=== PATIENT | female | born 1990 | race Caucasian/White ===

== ENCOUNTER 2017-05-29 18:16 | Emergency (ER) | payer OTHER ==
[2017-05-29] MEDS ORDERED: Famotidine/PF 20 mg/2ml Vial ONE (18:36)
[2017-05-29] MEDS ORDERED: Water For Inject, Bacteriostat 30 ML ONE (18:36)
[2017-05-29] MEDS ORDERED: methylPREDNISolone Sod Succ/PF 125 MG/2 ML VIAL ONE (18:36)
[2017-05-29] MEDS ORDERED: Ondansetron HCl/PF 4 MG/2 ML Vial ONE (18:49)
== END 2017-05-29 20:07 | disposition home or self-care (01) ==
LOC: ERS 18:16
DX: T88.6XXA Anaphylactic reaction due to adverse effect of correct drug or medicament properly administered, initial encounter (principal); F90.9 Attention-deficit hyperactivity disorder, unspecified type; I73.00 Raynaud's syndrome without gangrene
CPT/HCPCS: 96372; 96374; 96375; J2405; J2930; S0028

== ENCOUNTER 2017-12-02 17:22 | Emergency (ER) | payer OTHER ==
[2017-12-02] MEDS ORDERED: EPINEPHrine 1 MG/ML AMP ONE (17:24)
[2017-12-02] MEDS ORDERED: diphenhydrAMINE 50 MG/ML VIAL ONE ×2 (17:24→17:31)
[2017-12-02] MEDS ORDERED: methylPREDNISolone Sod Succ/PF 125 MG/2 ML VIAL ONE (17:24)
[2017-12-02] MEDS ORDERED: Ondansetron HCl/PF 4 MG/2 ML Vial ONE ×2 (17:26→18:18)
[2017-12-02] MEDS ORDERED: Famotidine/PF 20 mg/2ml Vial ONE (17:28)
[2017-12-02] MEDS ORDERED: Diazepam 5 MG TAB ONE (19:39)
[2017-12-02] MEDS ORDERED: Dexamethasone 10 MG/ML VIAL ONE (20:28)
== END 2017-12-02 21:30 | disposition home or self-care (01) ==
LOC: ERS 17:22
DX: T65.811A Toxic effect of latex, accidental (unintentional), initial encounter (principal); F90.9 Attention-deficit hyperactivity disorder, unspecified type; Z79.899 Other long term (current) drug therapy
CPT/HCPCS: 96361; 96372; 96374; 96375; 96376; J0171; J1100; J1200; J2405; J2930; S0028

== ENCOUNTER 2018-01-09 18:07 | Observation (INO) | payer OTHER ==
[2018-01-09] MEDS ORDERED: Famotidine 20 MG TAB ONE (18:13)
[2018-01-09] MEDS ORDERED: Ondansetron ODT 4 MG TAB ONE ×2 (18:15→23:04)
[2018-01-09] MEDS ORDERED: diphenhydrAMINE 50 MG/ML VIAL ONE ×2 (18:19→22:22)
[2018-01-09] MEDS ORDERED: EPINEPHrine 1 MG/ML AMP ONE (18:20)
[2018-01-09] MEDS ORDERED: methylPREDNISolone Sod Succ/PF 125 MG/2 ML VIAL ONE (18:21)
[2018-01-09] MEDS ORDERED: EPINEPHrine 1 MG, Admixture Fee 1 EACH in Dextrose 5% in Water 250 ML IVPB SCH (18:30)
[2018-01-09] MEDS ORDERED: Famotidine 40 MG/4 ML VIAL SLOW IVP SCH (18:30)
[2018-01-09] MEDS ORDERED: Albuterol Sulfate 2.5 mg/3 ml Neb NEB PRN (23:37)
[2018-01-10 00:28] VITALS: BMI 21.7
[2018-01-10] MEDS: diphenhydrAMINE 50 MG/ML VIAL IVP SCH ×3 (00:39→11:27)
--- NOTE | 2018-01-10 00:51 | HP ---
PRIMARY CARE PHYSICIAN: Dr. Fortino Dill. PRESENTING COMPLAINT: Shortness of breath. HISTORY OF PRESENT ILLNESS: Ms. Joyce Pepe is a 27-year-old female with a past medical history of Raynaud disease and ADD, who was working at the emergency [facility] and accidentally touched a latex Dalton catheter. She has an allergy to LATEX and soon after developed shortness of breath, difficulty in swallowing, and wheezing. She was immediately given epinephrine and ended up getting 2 doses. She also received albuterol, Benadryl, Pepcid, and methylprednisolone, as well as Zofran. She improve with treatment, but she continued to have some difficulty breathing and persistently wheezing, so decision was made to admit for further care. PAST MEDICAL HISTORY: As stated in the HPI. PAST SURGICAL HISTORY: Right shoulder surgery. FAMILY HISTORY: Reviewed and noncontributory. SOCIAL HISTORY: Not drink alcohol, use illicit drugs or smoke cigarettes. ALLERGIES: LATEX. HOME MEDICATIONS: Adderall, ibuprofen. REVIEW OF SYSTEMS: A 10-point review of systems conducted and negative except as stated in HPI. PHYSICAL EXAMINATION: VITAL SIGNS: Shows slightly tachycardic with heart rate ranging between 110 and 120. Other vital signs within normal limits. CONSTITUTIONAL: Not in acute respiratory distress, sitting up in bed. HEENT: Normocephalic, atraumatic. Not pale, anicteric. PERRLA, EOMI. Moist mucous membrane. NECK: Supple, full range of movement. CARDIOVASCULAR: S1 and S2 only. CARDIOVASCULAR: Tachycardic, regular rhythm. No murmurs, rubs or gallops. RESPIRATORY: Minimal wheezing bilaterally. ABDOMEN: Soft, nontender, nondistended. Bowel sounds normoactive. MUSCULOSKELETAL: No edema. SKIN: Warm, dry, well-perfused. No rashes or lesions. NEUROLOGIC: Alert and well oriented to time, place and person. No focal deficits. PSYCHIATRIC: Normal mood and affect. ASSESSMENT AND PLAN: 1. 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 She has been started on epinephrine, nebulizer therapy, diphenhydramine and methylprednisone. We will monitor overnight initially and epinephrine drip was ordered due to patient's continued wheezing, but she improved after nebulizer therapy, so will hold off on epinephrine drip for now. CODE STATUS: FULL CODE. Deep venous thrombosis prophylaxis: Not required. MTDD
[2018-01-10] MEDS ORDERED: Albuterol Sulfate 2.5 mg/3 ml Neb NEB SCH (02:30)
[2018-01-10 04:57] LABS: #Lymphocytes 0.5 thou/uL (1.20-3.40); #Monocytes 0.1 thou/uL (0.11-0.59); #Neutrophils 6.2 thou/uL (1.40-6.50); %Basophils 0.2 % (0.0-1.0); %Eosinophils 0.2 % (0.0-10.0); %Lymphocytes 7.5 % (21.0-51.0); %Monocytes 1.4 % (0.0-10.0); %Neutrophils 90.7 % (42.0-75.0); Hemoglobin 11.7 g/dL (12.0-16.0); Mean Corpuscular HGB CONC 33.4 g/dL (32.0-36.0); Mean Corpuscular Hemoglobin 30.7 pg (27.0-31.0); Mean Corpuscular Volume 91.8 fl (81.0-99.0); Mean Platelet Volume 8.6 fL (7.4-10.4); Platelet Count 161 thou/uL (130-400); RBC Distribution Width 11.4 % (11.5-14.5); Red Blood Cell (RBC) Count 3.82 mill/uL (4.20-5.40); White Blood Cell (WBC) Count 6.8 thou/uL (4.8-10.8)
[2018-01-10 05:17] LABS: Anion Gap 9 mmol/L (10-20); BUN (Urea Nitrogen) 10 mg/dL (7.0-18.7); Calc. Creatinine Clearance 110 mL/min (70-130); Calcium 8.2 mg/dL (7.8-10.44); Carbon Dioxide 21 mmol/L (22-29); Chloride 111 mmol/L (98-107); Estimated GFR-MDRD 82; Glucose 245 mg/dL (70-105); Potassium 4.3 mmol/L (3.5-5.1); Sodium 137 mmol/L (136-145)
[2018-01-10 07:59] VITALS: BP 117/60; TEMP 98.4
[2018-01-10] MEDS ORDERED: Famotidine 40 MG/4 ML VIAL SLOW IVP SCH (09:00)
[2018-01-10] MEDS ORDERED: Sterile Water 10 ML ONE (11:24)
--- NOTE | 2018-01-10 21:27 | DIS ---
DATE OF ADMISSION: 01/11/2018 DATE OF DISCHARGE: 01/11/2018 CONDITION AT THE TIME OF DISCHARGE: Stable and improved. DISCHARGE DISPOSITION: Home. DISCHARGE DIAGNOSES: 1. 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 2. History of attention deficit disorder. 3. History of Raynaud's disease. DISCHARGE MEDICATIONS: Hydroxyzine 25 mg p.o. q.i.d. for 5 days, Pepcid 20 mg p.o. b.i.d. for 5 days , Medrol Dosepak at a tapering dose, Valium 5 mg p.o. t.i.d. p.r.n. Resume home medications with Add erall 20 mg p.o. b.i.d., ibuprofen as needed, Zofran as needed. CONSULTATIONS: None. PROCEDURES DONE IN THE HOSPITAL: None. HISTORY OF PRESENTING ILLNESS: Ms. 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 She has a known history of LATEX allergy with multiple allergic reactions to it in the past. 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 The patient was near that latex [address], but did not actually come in physical contact with that. Even then adjust with fumes, she start ed to develop cough, shortness of breath, and wheezing. She felt that her throat was closing up. Wi th that known history of LATEX allergy, she was immediately given epinephrine x2 and was started on i nhaler H1 and H2 blockers and Solu-Medrol as well as Zofran. She had some improvement in her symptom s, but continued to feel short of breath and had wheezing, so she was admitted overnight for further treatment and observation. Please see admission history and physical for further details. HOSPITAL COURSE: The patient had improvement in her symptoms this morning. After discussion, it was found out that she has quite severe allergies to LATEX, which seems to be getting worse each time. Especially this time, she was not even in the physical contact of the LATEX, but was in the presence of the LATEX in the same room. Given this fact, she will be on a prolonged course of H1 and H2 antih istamines as well as steroids for now. Her symptoms have almost improved and she is okay to go home at this time. She is hemodynamically stable as well. She was provided a list of global marketing specialist/immunolog ist locally, especially given her history of Raynaud's disease, which has not been worked up so far. She would greatly benefit from allergy follow up as well as because it seems like her reaction to LA EMNDY is getting worse every time. Other than that, she has been seen and examined this morning and is feeling much better. PHYSICAL EXAMINATION: This morning include, VITAL SIGNS: Temperature 98.4, pulse of 78, respirations 16, saturating 98% on room air, blood press ure 117/60. GENERAL: No acute distress, awake, alert, oriented x3. CHEST: Clear to auscultation without any wheezing, rales, or rhonchi. HEART: Rate and rhythm is regular without any murmur, rubs, or gallops. At this time, she is instructed to establish care with a primary care physician locally in the area a nd follow up with one of the allergy, data processing control clerk in the area. Discharge plan was discussed with maria g connelly and her family member who verbalized understanding.
== END 2018-01-10 12:19 | disposition home or self-care (01) ==
LOC: ERS 18:07 → 2SW 23:51
PROVIDERS: ADMIT Internal Medicine; ATTEND Internal Medicine
DX: T65.811A Toxic effect of latex, accidental (unintentional), initial encounter (principal); T78.2XXA Anaphylactic shock, unspecified, initial encounter; F98.8 Other specified behavioral and emotional disorders with onset usually occurring in childhood and adolescence; I73.00 Raynaud's syndrome without gangrene; Z79.899 Other long term (current) drug therapy; Z91.048 Other nonmedicinal substance allergy status; Y92.238 Other place in hospital as the place of occurrence of the external cause
CPT/HCPCS: 36415; 80048; 85025; 96361; 96372; 96374; 96375; 96376; A4216; G0378; J0171; J1200; J2920; J2930; J7070; J7620; Q0162